=== PATIENT | male | born 1985 | race Caucasian/White ===

== ENCOUNTER 2016-09-25 11:13 | Emergency (ER) | payer OTHER ==
[2016-09-25 11:18] VITALS: BP 133/101; PULSE 94; O2SAT 96
[2016-09-25] MEDS ORDERED: XYLOCAINE 1% HCL 20 ML MDV ONE (11:29)
--- NOTE | 2016-09-25 11:48 | ERPHSYRPT ---
- History of Present Illness Time Seen by Provider: 09/25/16 11:37 Source: patient Exam Limitations: no limitations Patient Subjective Stated Complaint: Lacertation to top of head. pt was using a snaker tractor driver and it hit him on the top of the head. pt did not black out. Denies dizziness. c/o light headedness when it happened. c/o headache like pain at this time. Triage Nursing Assessment: ALERT X 3. RESPIRATIONS EVEN AND UNLABORED. SKIN IS PINK WARM AND DRY. PT HAS LACERATION ON THE TOP OF HEAD. BLEEDING HAS STOPPED AT THIS TIME. Physician History: Pt. 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 Lac is superficial and approx. 3-4 cm with minimal bleeding. No LOC, dizziness, blurred vision, N/V, numbness, tingling or weakness. Last tetanus 2 years ago. Denies any neck pain and have been A/O throughout incident. Occurred: just prior to arrival Severity: mild Head Injury Location: parietal Method of Injury: direct blow Loss of Consciousness: no loss of consciousness Associated Symptoms: headaches, No nausea, No vomiting Allergies/Adverse Reactions: No Known Allergies Allergy (Verified 09/25/16 11:38) Home Medications: No Home Meds 1 mg PO DAILY 09/25/16 [History] Hx Tetanus, Diphtheria Vaccination/Date Given: Yes (2014) Hx Influenza Vaccination/Date Given: No Hx Pneumococcal Vaccination/Date Given: No Immunizations Up to Date: Yes - Review of Systems Constitutional: No Fever, No Chills Eyes: No Symptoms Ears, Nose, & Throat: No Symptoms Respiratory: No Cough, No Dyspnea Cardiac: No Chest Pain, No Edema, No Syncope Abdominal/Gastrointestinal: No Abdominal Pain, No Nausea, No Vomiting, No Diarrhea Genitourinary Symptoms: No Dysuria Musculoskeletal: No Back Pain, No Neck Pain Skin: No Rash Neurological: No Dizziness, No Focal Weakness, No Sensory Changes Psychological: No Symptoms Endocrine: No Symptoms All Other Systems: Reviewed and Negative - Past Medical History Pertinent Past Medical History: No Neurological History: No Pertinent History ENT History: No Pertinent History Cardiac History: No Pertinent History Respiratory History: No Pertinent History Endocrine Medical History: No Pertinent History Musculoskeletal History: No Pertinent History GI Medical History: No Pertinent History History: No Pertinent History Psycho-Social History: No Pertinent History Male Reproductive Disorders: No Pertinent History - Past Surgical History Past Surgical History: No Neuro Surgical History: No Pertinent History Cardiac: No Pertinent History Respiratory: No Pertinent History Gastrointestinal: No Pertinent History Genitourinary: No Pertinent History Musculoskeletal: No Pertinent History Male Surgical History: No Pertinent History - Social History Smoking Status: Never smoker Exposure to second hand smoke: No Drug Use: none Patient Lives Alone: No - Nursing Vital Signs Nursing Vital Signs: Initial Vital Signs Temperature 97.9 F Temperature Source Oral Pulse Rate 94 Respiratory Rate 20 Blood Pressure [Right Arm] 133/101 Pain Intensity 2 - [place] Coma Score Best Eye Response ([place]): (4) open spontaneously Best Verbal Response ([place]): (5) oriented Best Motor Response ([place]): (6) obeys commands Manor Total: 15 - Physical Exam General Appearance: no apparent distress Head Injury: lacerations (3-4cm lace to top of head, superficial, wound well aprroximated) Eye Exam: bilateral eye: normal inspection, PERRL, EOMI ENT Exam: airway nml Neck Exam: supple, trachea midline, full range of motion, normal alignment, normal inspection Cardiovascular/Respiratory Exam: chest non-tender, normal breath sounds, regular rate/rhythm Gastrointestinal/Abdominal Exam: soft, non tender, no distention Back Exam: normal inspection, No vertebral tenderness Extremity Exam: non-tender, normal range of motion, normal inspection Mental Status Exam: alert, oriented x 3, cooperative Motor/Sensory Exam: no motor deficit, no sensory deficit, CN II-XII intact DTR Exam: knee (R): 2+, knee (L): 2+ Skin Exam: laceration Lymphatic Exam: No adenopathy, No axilla node tender (L) SpO2 Interpretation: normal SpO2: 96 Oxygen Delivery: Room Air Procedures - Laceration/Wound Repair Head Wound Location: head Wound Length (cm): 4 Wound's Depth, Shape: superficial Wound Explored: clean Irrigated: Yes Hibiclens Prep: Yes Anesthesia: 1% Lidocaine Volume Anesthetic (ccs): 6 Wound Debrided: minimal Wound Repaired With: Barber (8 barber placed without difficulty) Layer Closure?: No - Course Nursing assessment & vital signs reviewed: Yes Ordered Tests: Medication Summary Discontinued Medications Generic Name Dose Route Start Last Admin Trade Name Freq PRN Reason Stop Dose Admin Lidocaine HCl Confirm 09/25/16 11:29 Xylocaine 1% Hcl 20 Ml Mdv Administered 09/25/16 11:30 Dose 10 ml .ROUTE .STK-MED ONE - Progress Progress: improved Counseled pt/family regarding: diagnosis - Departure Time of Disposition: 11:52 Departure Disposition: Home Clinical Impression: Scalp laceration Condition: Stable Critical Care Time: No Instructions: Care for a Laceration After Repair, Laceration Repair -- [place] Additional Instructions: Keep wound clean and dry Tylenol or Motrin for pain Return for worse headache, dizziness, blurred vision, numbness, tingling, weakness or any problems.
== END 2016-09-25 12:00 | disposition home or self-care (01) ==
LOC: ED 11:13
PROC: 0HQ0XZZ Repair Scalp Skin, External Approach (ICD-10-PCS; principal; 2016-09-25)
DX: S01.01XA Laceration without foreign body of scalp, initial encounter (principal); W22.8XXA Striking against or struck by other objects, initial encounter
CPT/HCPCS: 12002; 99282